=== PATIENT | male | born 1950 | race Caucasian/White ===

== ENCOUNTER → 2018-06-15 | Outpatient (CLI) | payer MEDICARE ==
--- NOTE | 2018-06-15 14:13 | MR ---
EXAMINATION TYPE: MR brain wo/w con DATE OF EXAM: 06/15/2018 12:09 PM COMPARISON: NONE HISTORY: Neurofibromatosis, type 1 CONTRAST: Patient received 8.5 mL intravenous Gadavist gadolinium contrast. Multiplanar and multispin-echo imaging of the brain was performed . Pre and post contrast enhanced i mages are obtained. The ventricles, basal cisterns and sulci overlying the cerebral convexities are moderately enlarged. There is evidence of mild periventricular white matter ischemic demyelination. Remote deep white matter insults are also noted. No acute edema is seen on diffusion weighted imaging. There is no evidence for midline shift or mass effect. Acute intracranial hemorrhage or extra-axial collection is not evident. No enhancing intracranial lesions are seen. 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 Moderate opacification right mastoid air cells. Left-sided mastoid air cells are minimally opacified. Mucocele left maxillary sinus. Chronic pansinusitis. IMPRESSION: 1. No enhancing intracranial lesions. Several scalp neurofibromas identified. 2. Age-related atrophic and chronic small vessel ischemic change. No acute intracranial process at this time.
== END | disposition home or self-care (01) ==
LOC: RADMRIMAIN 10:57
PROVIDERS: ATTEND Psychiatry & Neurology Neurology
DX: Q85.01 Neurofibromatosis, type 1 (principal); G31.1 Senile degeneration of brain, not elsewhere classified; I67.82 Cerebral ischemia
CPT/HCPCS: 70553; A9585

== ENCOUNTER 2020-05-13 08:26 | Inpatient (IN) | payer MEDICARE ==
[2020-05-13] MEDS ORDERED: SODIUM CHLORIDE 0.9% 1,000 ML IV STA (08:45)
[2020-05-13 09:22] LABS: Basophils # (A) 0.1 k/uL (0-0.2); Basophils % (A) 0 %; Eosinophils # (A) 0.1 k/uL (0-0.7); Eosinophils % (A) 0 %; HCT 34.1 % (39.0-53.0); HGB 11.5 gm/dL (13.0-17.5); Lymphocytes # (A) 1.8 k/uL (1.0-4.8); Lymphocytes % (A) 15 %; MCH 30.8 pg (25.0-35.0); MCHC 33.6 g/dL (31.0-37.0); MCV 91.7 fL (80.0-100.0); Mean Platelet Volume 7.2; Monocytes # (A) 0.6 k/uL (0-1.0); Monocytes % (A) 5 %; Neutrophils # (A) 9.4 k/uL (1.3-7.7); Neutrophils % (A) 78 %; Platelet Count 276 k/uL (150-450); RBC 3.72 m/uL (4.30-5.90); RDW 13.5 % (11.5-15.5)
--- NOTE | 2020-05-13 09:26 | ED ---
GI Bleed HPI - General Chief complaint: GI Bleed Stated complaint: GI Bleed Time Seen by Provider: 05/13/20 08:50 Source: patient, RN notes reviewed Mode of arrival: ambulatory Limitations: no limitations - History of Present Illness Initial comments: This is a 69-year-old male who presents with complaints of 2 days of black tarry colored stool also some lightheadedness when he gets up from a sitting or supine position. No overt abdominal pain he had previous history of about 15 years ago (he states. No nausea no vomiting no intake of any known substances containing iron no Pepto-Bismol go black colored material. No other complaints or modifyin g factors - Related Data Home Medications Medication Instructions Recorded Confirmed Aspirin EC [Ecotrin Low Dose] 81 mg PO HS 05/13/20 05/13/20 Multivitamins, Thera [Multivitamin 1 tab PO DAILY 05/13/20 05/13/20 (formulary)] [place]-3 Fatty Acids/Fish Oil [Fish 1 cap PO DAILY@1200 05/13/20 05/13/20 Oil 1,000 mg Softgel] Pravastatin Sodium [Pravachol] 40 mg PO HS 05/13/20 05/13/20 Allergies Allergy/AdvReac Type Severity Reaction Status Date / Time No Known Allergies Allergy Verified 05/13/20 09:27 Review of Systems ROS Statement: Those systems with pertinent positive or pertinent negative responses have been documented in the HPI. ROS Other: All systems not noted in ROS Statement are negative. Past Medical History Past Medical History: Neurologic Disorder History of Any Multi-Drug Resistant Organisms: None Reported Past Surgical History: No Surgical Hx Reported Past Psychological History: No Psychological Hx Reported Smoking Status: Never smoker Past Alcohol Use History: None Reported Past Drug Use History: None Reported General Exam - General Exam Comments Initial Comments: This a well-developed well-nourished awake alert oriented times 3 male Limitations: no limitations General appearance: alert, in no apparent distress Head exam: Present: atraumatic, normocephalic, normal inspection Eye exam: Present: normal appearance, PERRL, EOMI. Absent: scleral icterus, conjunctival injection, periorbital swelling ENT exam: Present: normal exam, mucous membranes moist Neck exam: Present: normal inspection. Absent: tenderness, meningismus, lymphadenopathy Respiratory exam: Present: normal lung sounds bilaterally. Absent: respiratory distress, wheezes, rales, rhonchi, stridor Cardiovascular Exam: Present: normal rhythm, tachycardia, normal heart sounds. Absent: systolic murmur, diastolic murmur, rubs, gallop, clicks GI/Abdominal exam: Present: soft, normal bowel sounds. Absent: distended, tenderness, guarding, rebound, rigid Rectal exam: Present: heme (+) stool, black stool, other (No masses palpable) Extremities exam: Present: normal inspection, full ROM, normal capillary refill. Absent: tenderness, pedal edema, joint swelling, calf tenderness Back exam: Present: normal inspection Neurological exam: Present: alert, oriented X3, CN II-XII intact Psychiatric exam: Present: normal affect, normal mood Skin exam: Present: warm, dry, intact, normal color. Absent: rash Course Vital Signs 05/13/20 05/13/20 08:31 09:45 Temperature 97.8 F Pulse Rate 112 H 86 Respiratory 16 16 Rate Blood Pressure 130/89 136/79 O2 Sat by Pulse 99 99 Oximetry Medical Decision Making - Medical Decision Making I did discuss the findings with the patient as well as with Dr. Leonardo. Patient is demonstrated evidence of upper GI bleed patient will be admitted with GI consultation. - Lab Data Result diagrams: 05/13/20 09:06 05/13/20 09:06 Lab Results 05/13/20 05/13/20 05/13/20 Range/Units 09:04 09:06 09:06 WBC 12.0 H (3.8-10.6) k/uL RBC 3.72 L (4.30-5.90) m/uL Hgb 11.5 L (13.0-17.5) gm/dL Hct 34.1 L (39.0-53.0) % MCV 91.7 (80.0-100.0) fL MCH 30.8 (25.0-35.0) pg MCHC 33.6 (31.0-37.0) g/dL RDW 13.5 (11.5-15.5) % Plt Count 276 (150-450) k/uL Neutrophils % 78 % Lymphocytes % 15 % Monocytes % 5 % Eosinophils % 0 % Basophils % 0 % Neutrophils # 9.4 H (1.3-7.7) k/uL Lymphocytes # 1.8 (1.0-4.8) k/uL Monocytes # 0.6 (0-1.0) k/uL Eosinophils # 0.1 (0-0.7) k/uL Basophils # 0.1 (0-0.2) k/uL PT (9.0-12.0) sec INR (<1.2) APTT (22.0-30.0) sec Sodium (137-145) mmol/L Potassium (3.5-5.1) mmol/L Chloride (98-107) mmol/L Carbon Dioxide (22-30) mmol/L Anion Gap mmol/L BUN (9-20) mg/dL Creatinine (0.66-1.25) mg/dL Est GFR (CKD-EPI)AfAm (>60 ml/min/1.73 sqM) Est GFR (CKD-EPI)NonAf (>60 ml/min/1.73 sqM) Glucose (74-99) mg/dL Calcium (8.4-10.2) mg/dL Magnesium (1.6-2.3) mg/dL Total Bilirubin (0.2-1.3) mg/dL AST (17-59) U/L ALT (4-49) U/L Alkaline Phosphatase (38-126) U/L Creatine Kinase (55-170) U/L Troponin I (0.000-0.034) ng/mL Total Protein (6.3-8.2) g/dL Albumin (3.5-5.0) g/dL Stool Occult Blood Positive (Negative) Blood Type Blood Type Confirm O Positive Blood Type Recheck Bld Type Recheck Status Antibody Screen Spec Expiration Date 05/13/20 05/13/20 05/13/20 Range/Units 09:06 09:06 09:06 WBC (3.8-10.6) k/uL RBC (4.30-5.90) m/uL Hgb (13.0-17.5) gm/dL Hct (39.0-53.0) % MCV (80.0-100.0) fL MCH (25.0-35.0) pg MCHC (31.0-37.0) g/dL RDW (11.5-15.5) % Plt Count (150-450) k/uL Neutrophils % % Lymphocytes % % Monocytes % % Eosinophils % % Basophils % % Neutrophils # (1.3-7.7) k/uL Lymphocytes # (1.0-4.8) k/uL Monocytes # (0-1.0) k/uL Eosinophils # (0-0.7) k/uL Basophils # (0-0.2) k/uL PT 9.8 (9.0-12.0) sec INR 0.9 (<1.2) APTT 22.1 (22.0-30.0) sec Sodium 138 (137-145) mmol/L Potassium 4.7 (3.5-5.1) mmol/L Chloride 106 (98-107) mmol/L Carbon Dioxide 23 (22-30) mmol/L Anion Gap 9 mmol/L BUN 46 H (9-20) mg/dL Creatinine 0.71 (0.66-1.25) mg/dL Est GFR (CKD-EPI)AfAm >90 (>60 ml/min/1.73 sqM) Est GFR (CKD-EPI)NonAf >90 (>60 ml/min/1.73 sqM) Glucose 134 H (74-99) mg/dL Calcium 9.5 (8.4-10.2) mg/dL Magnesium 1.9 (1.6-2.3) mg/dL Total Bilirubin 0.5 (0.2-1.3) mg/dL AST 20 (17-59) U/L ALT 14 (4-49) U/L Alkaline Phosphatase 77 (38-126) U/L Creatine Kinase 28 L (55-170) U/L Troponin I <0.012 (0.000-0.034) ng/mL Total Protein 6.5 (6.3-8.2) g/dL Albumin 3.9 (3.5-5.0) g/dL Stool Occult Blood (Negative) Blood Type Blood Type Confirm Blood Type Recheck Bld Type Recheck Status Antibody Screen Spec Expiration Date 05/13/20 Range/Units 09:06 WBC (3.8-10.6) k/uL RBC (4.30-5.90) m/uL Hgb (13.0-17.5) gm/dL Hct (39.0-53.0) % MCV (80.0-100.0) fL MCH (25.0-35.0) pg MCHC (31.0-37.0) g/dL RDW (11.5-15.5) % Plt Count (150-450) k/uL Neutrophils % % Lymphocytes % % Monocytes % % Eosinophils % % Basophils % % Neutrophils # (1.3-7.7) k/uL Lymphocytes # (1.0-4.8) k/uL Monocytes # (0-1.0) k/uL Eosinophils # (0-0.7) k/uL Basophils # (0-0.2) k/uL PT (9.0-12.0) sec INR (<1.2) APTT (22.0-30.0) sec Sodium (137-145) mmol/L Potassium (3.5-5.1) mmol/L Chloride (98-107) mmol/L Carbon Dioxide (22-30) mmol/L Anion Gap mmol/L BUN (9-20) mg/dL Creatinine (0.66-1.25) mg/dL Est GFR (CKD-EPI)AfAm (>60 ml/min/1.73 sqM) Est GFR (CKD-EPI)NonAf (>60 ml/min/1.73 sqM) Glucose (74-99) mg/dL Calcium (8.4-10.2) mg/dL Magnesium (1.6-2.3) mg/dL Total Bilirubin (0.2-1.3) mg/dL AST (17-59) U/L ALT (4-49) U/L Alkaline Phosphatase (38-126) U/L Creatine Kinase (55-170) U/L Troponin I (0.000-0.034) ng/mL Total Protein (6.3-8.2) g/dL Albumin (3.5-5.0) g/dL Stool Occult Blood (Negative) Blood Type O Positive Blood Type Confirm Blood Type Recheck No Previous Record Bld Type Recheck Status CABO Indicated Antibody Screen NEGATIVE Spec Expiration Date 05/16/2020 - 230 - Radiology Data Radiology results: report reviewed (Imaging reviewed no acute findings), image reviewed Disposition Clinical Impression: Melena, Upper GI bleeding, Anemia Disposition: ADMITTED IP TO THIS [facility] Condition: Fair Referrals: Donavan Oneil MD [Primary Care Provider] - 1-2 days
[2020-05-13 09:33] LABS: ALT 14 U/L (4-49); AST 20 U/L (17-59); African American GFR (CKD) >90 (>60 ml/min/1.73 sqM); Albumin 3.9 g/dL (3.5-5.0); Alkaline Phosphatase 77 U/L (38-126); Anion Gap 9 mmol/L; Blood Urea Nitrogen 46 mg/dL (9-20); Calcium 9.5 mg/dL (8.4-10.2); Carbon Dioxide 23 mmol/L (22-30); Chloride 106 mmol/L (98-107); Creatine Kinase 28 U/L (55-170); Glucose 134 mg/dL (74-99); Magnesium 1.9 mg/dL (1.6-2.3); Non-African American GFR(CKD) >90 (>60 ml/min/1.73 sqM); Potassium 4.7 mmol/L (3.5-5.1); Sodium 138 mmol/L (137-145); Total Bilirubin 0.5 mg/dL (0.2-1.3); Total Protein 6.5 g/dL (6.3-8.2)
[2020-05-13 09:37] LABS: INR 0.9 (<1.2); Partial Thromboplastin Time 22.1 sec (22.0-30.0); Prothrombin Time 9.8 sec (9.0-12.0)
--- NOTE | 2020-05-13 09:38 | XR ---
EXAMINATION TYPE: XR abdomen 2V DATE OF EXAM: 05/13/2020 9:34 AM CLINICAL HISTORY: GI bleed. Dark blood in stool. Dizziness. TECHNIQUE: Supine and upright images of the abdomen and pelvis were obtained COMPARISON: None. FINDINGS: Nonspecific. There is no visceromegaly, pneumoperitoneum, or abnormal calcification appreci ated. The lung bases are clear. Degenerative changes of the spine and hips. IMPRESSION: Nonspecific bowel gas pattern. No pneumoperitoneum.
[2020-05-13] MEDS ORDERED: ONDANSETRON 4 MG/2 ML VIAL IVP PRN (10:59)
[2020-05-13] MEDS ORDERED: NALOXONE 0.4 MG/ML 1 ML VIAL IV PRN (10:59)
[2020-05-13] MEDS: SODIUM CHLORIDE 0.9% 1,000 ML IV SCH ×2 (11:08→19:34)
[2020-05-13] MEDS ORDERED: INFLUENZA VACCINE (6 MOS+) 60 MCG/0.5 ML SYRINGE IM ONE (12:09)
[2020-05-13] MEDS ORDERED: PNEUMOCOCCAL VACC-PNEUMOVAX 23 25 MCG/0.5 ML VIAL IM ONE (12:09)
[2020-05-13] MEDS ORDERED: ACETAMINOPHEN TAB 325 MG TAB PO PRN (12:33)
--- NOTE | 2020-05-13 14:07 | P.HPIM ---
History of Present Illness H&P Date: 05/13/20 69-year-old male with PMH of neurofibromatosis presents to the ED for melena. Patient reports black tarry stools over the past 2 days. This morning, he expressed lightheadedness as he stood up which prompted him to come to the ED. He denies any abdominal pain. He denies any nausea or vomiting. Patient reports similar incidents 12 years ago but is unsure of the diagnosis. He denies any hematochezia. He denies any NSAID use. He denies any alcohol use. No smoking. States colonoscopy was last year normal. He denies any headache, lower extremity edema, fever or chills, cough, chest pain, shortness of breath, palpitations, changes in urination or bowel habits. He reports a decreased ap petite but drinks plenty of water. He denies any numbness/weakness/tingling of the extremities. In the ED, his vital signs were stable except for pulse of 112. CBC showed WBC count of 12 and hemoglobin of 11.5. CMP showed BUN of 46, glucose of 134. Stool for occult blood is positive. Patient is admitted for lower GI bleed with GI on consult. Review of Systems Pertinent positives and negatives as discussed in HPI, a complete review of systems was performed and all other systems are negative. Past Medical History Past Medical History: Hyperlipidemia, Neurologic Disorder, Skin Disorder Additional Past Medical History / Comment(s): Neurofibromytosis, lower GI bleed with anemia d/t medication allergy per pt. History of Any Multi-Drug Resistant Organisms: None Reported Past Surgical History: No Surgical Hx Reported Additional Past Surgical History / Comment(s): Tumor removed from posterior neck-benign, catahoula spot removed from abdomin for study, colonoscopies-normal with last one in 2019. Past Anesthesia/Blood Transfusion Reactions: No Reported Reaction Past Psychological History: No Psychological Hx Reported Additional Psychological History / Comment(s): Pt resides alone. He is independent. Smoking Status: Never smoker Past Alcohol Use History: None Reported Past Drug Use History: None Reported - Past Family History Father Family Medical History: Cancer Additional Family Medical History / Comment(s): Father of cancer, pt cannot recall type. Mother Family Medical History: Cancer Additional Family Medical History / Comment(s): Mother is from breast/lung cancer Sister(s) Family Medical History: Cancer Additional Family Medical History / Comment(s): Sister is from breast/lung cancer. Medications and Allergies Home Medications Medication Instructions Recorded Confirmed Type Aspirin EC [Ecotrin Low Dose] 81 mg PO HS 05/13/20 05/13/20 History Multivitamins, Thera [Multivitamin 1 tab PO DAILY 05/13/20 05/13/20 History (formulary)] [place]-3 Fatty Acids/Fish Oil [Fish 1 cap PO DAILY@1200 05/13/20 05/13/20 History Oil 1,000 mg Softgel] Pravastatin Sodium [Pravachol] 40 mg PO HS 05/13/20 05/13/20 History Allergies Allergy/AdvReac Type Severity Reaction Status Date / Time No Known Allergies Allergy Verified 05/13/20 09:27 Physical Exam Vitals: Vital Signs Temp Pulse Pulse Resp BP BP Pulse Ox 05/13/20 12:31 97.9 F 92 16 121/73 98 05/13/20 09:45 86 16 136/79 99 05/13/20 08:31 97.8 F 112 H 16 130/89 99 Intake and Output 05/12/20 05/13/20 05/13/20 22:59 06:59 14:59 Other: Weight 80.739 kg General: [non toxic], [no distress], [appears at stated age] Derm: [warm], [dry], neurofibromas scattered throughout Head: [atraumatic], [normocephalic], [symmetric] Eyes: [EOMI], [no lid lag], [anicteric sclera] Mouth: [no lip lesion], [mucus membranes moist] Cardiovascular: [S1S2 reg], [tachycardic], [positive DP pulse bilateral], Lungs: [CTA bilateral], [no rhonchi, no rales] , [no accessory muscle use] Abdominal: [soft], [ nontender to palpation], [no guarding], [no appreciable organomegaly] Ext: [no gross muscle atrophy], [no edema], [no contractures] Neuro: [ CN II-XI grossly intact], [no focal neuro deficits] Psych: [Alert], [oriented], [appropriate affect] Results CBC & Chem 7: 05/13/20 09:06 10/07/20 09:06 Labs: Abnormal Lab Results - Last 24 Hours (Table) 05/13/20 05/13/20 Range/Units 09:06 09:06 WBC 12.0 H (3.8-10.6) k/uL RBC 3.72 L (4.30-5.90) m/uL Hgb 11.5 L (13.0-17.5) gm/dL Hct 34.1 L (39.0-53.0) % Neutrophils # 9.4 H (1.3-7.7) k/uL BUN 46 H (9-20) mg/dL Glucose 134 H (74-99) mg/dL Creatine Kinase 28 L (55-170) U/L Thrombosis Risk Factor Assmnt - Choose All That Apply Any of the Below Risk Factors Present?: Yes Each Factor Represents 1 point: Obesity (BMI >25) Other Risk Factors: Yes Each Risk Factor Represents 2 Points: Age 61-74 years Other congenital or acquired thrombophilia - If yes, enter type in comment: No Thrombosis Risk Factor Assessment Total Risk Factor Score: 3 Thrombosis Risk Factor Assessment Level: Moderate Risk Assessment and Plan Assessment: Lower GI bleed Lightheadedness Leukocytosis Elevated BUN Dyslipidemia Hemoglobin 11.5. Stool for occult blood positive. Plans: Nothing by mouth. GI consulted. Continue Protonix IV. Trend hemoglobin. Transfuse if hemoglobin less than 7. Telemetry monitoring. Hold aspirin. Likely related to the above. Plans: Continue normal saline at 75 mL per hour. Obtain orthostatics if not improved tomorrow. Likely reactive. No signs of infection. Plans: Continue to monitor. Repeat CBC. BUN 46. Likely due to GI bleed. Plans: IV hydration as above. Repeat BMP tomorrow morning. Plans: Continue pravastatin. DVT prophylaxis: [SCD boots] Discussed with: [Patient] Anticipated discharge: [2-3 days ] Anticipated discharge place: [Home] A total of [45] minutes was spent on the care of this complex patient more than 50% of the time was spent in counseling and care coordination. Patient names his nephew Nikolay decision maker. He can't make decisions for himself. Patient would like to be full code.
[2020-05-13 15:30] LABS: Basophils # (A) 0.1 k/uL (0-0.2); Basophils % (A) 0 %; Eosinophils # (A) 0.1 k/uL (0-0.7); Eosinophils % (A) 0 %; HCT 30.5 % (39.0-53.0); HGB 10.1 gm/dL (13.0-17.5); Lymphocytes # (A) 2.7 k/uL (1.0-4.8); Lymphocytes % (A) 21 %; MCH 29.9 pg (25.0-35.0); MCHC 33.3 g/dL (31.0-37.0); Mean Platelet Volume 7.4; Monocytes # (A) 0.8 k/uL (0-1.0); Monocytes % (A) 6 %; Neutrophils # (A) 9.4 k/uL (1.3-7.7); Neutrophils % (A) 71 %; Platelet Count 252 k/uL (150-450); RBC 3.39 m/uL (4.30-5.90); RDW 13.6 % (11.5-15.5); WBC 13.2 k/uL (3.8-10.6)
[2020-05-13] MEDS: PANTOPRAZOLE 40 MG/10 ML VIAL IV SCH (20:27)
[2020-05-13] MEDS ORDERED: PRAVASTATIN SODIUM 40 MG TAB PO SCH (21:00)
[2020-05-14 04:45] VITALS: RESP 16; TEMP 97.9
[2020-05-14 06:10] LABS: HCT 28.5 % (39.0-53.0); HGB 9.3 gm/dL (13.0-17.5); MCH 29.7 pg (25.0-35.0); MCHC 32.7 g/dL (31.0-37.0); MCV 90.7 fL (80.0-100.0); Mean Platelet Volume 7.2; Platelet Count 227 k/uL (150-450); RBC 3.14 m/uL (4.30-5.90); RDW 13.7 % (11.5-15.5); WBC 10.5 k/uL (3.8-10.6)
[2020-05-14] MEDS: PANTOPRAZOLE 40 MG/10 ML VIAL IV SCH (07:43)
--- NOTE | 2020-05-14 09:15 | P.CONS ---
History of Present Illness - Reason for Consult Consult date: 05/13/20 Melena Requesting physician: Anant Chan - Chief Complaint Melena - History of Present Illness 69-year-old male with a medical history significant for neurofibromatosis who presented to the hospital due to complaints of dark colored bowel movements. The patient reports 2 days of black bowel movements. He reports some associated lightheadedness. No gross blood per rectum. He does report a syncopal episode approximately 15 years ago while in [place] was unclear about the details regarding what intervention was performed. No history of acid reflux or peptic ulcer disease. The patient does take a baby aspirin daily. He denies any history of significant alcohol abuse. Last colonoscopy was 1 year ago as per patient report which the patient reports was normal. He did have testing on presentation which was positive for occult blood. Laboratory evaluation significant for WBC 12, hemoglobin 11.5, platelet count 376,000, total bilirubin 0.5, alkaline phosphatase 77, AST 20 and ALT 14. Nonspecific bowel gas pattern on abdominal x-ray. Review of Systems REVIEW OF SYSTEMS: CONSTITUTIONAL: Denies any fevers, chills, weight change or fatigue. CARDIOVASCULAR: Denies any chest pain, palpitations high or low blood pressures RESPIRATORY: Denies any shortness of breath, hemoptysis or cough. GENITOURINARY: No dysuria or hematuria. MUSCULOSKELETAL: No weakness reported. SKIN: Denies any new rashes or lesions, jaundice or pallor, history of neurofibromatosis. PSYCHIATRIC: Denies any depression or anxiety. NEUROLOGY: Denies headache, denies any new focal deficits. EARS/NOSE/THROAT: No recent hearing change, congestion, nasal discharge or sore throat. EYES: No pain in eyes, discharge or change in vision. GASTROINTESTINAL: As per HPI. Past Medical History Past Medical History: Hyperlipidemia, Neurologic Disorder, Skin Disorder Additional Past Medical History / Comment(s): Neurofibromytosis, lower GI bleed with anemia d/t medication allergy per pt. History of Any Multi-Drug Resistant Organisms: None Reported Past Surgical History: No Surgical Hx Reported Additional Past Surgical History / Comment(s): Tumor removed from posterior neck -benign, catahoula spot removed from abdomin for study, colonoscopies-normal with last one in 2019. Past Anesthesia/Blood Transfusion Reactions: No Reported Reaction Past Psychological History: No Psychological Hx Reported Additional Psychological History / Comment(s): Pt resides alone. He is independent. Smoking Status: Never smoker Past Alcohol Use History: None Reported Past Drug Use History: None Reported - Past Family History Father Family Medical History: Cancer Additional Family Medical History / Comment(s): Father of cancer, pt cannot recall type. Mother Family Medical History: Cancer Additional Family Medical History / Comment(s): Mother is from breast/lung cancer Sister(s) Family Medical History: Cancer Additional Family Medical History / Comment(s): Sister is from breast/lung cancer. Medications and Allergies Home Medications Medication Instructions Recorded Confirmed Type Aspirin EC [Ecotrin Low Dose] 81 mg PO HS 05/13/20 05/13/20 History Multivitamins, Thera [Multivitamin 1 tab PO DAILY 05/13/20 05/13/20 History (formulary)] [place]-3 Fatty Acids/Fish Oil [Fish 1 cap PO DAILY@1200 05/13/20 05/13/20 History Oil 1,000 mg Softgel] Pravastatin Sodium [Pravachol] 40 mg PO HS 05/13/20 05/13/20 History Allergies Allergy/AdvReac Type Severity Reaction Status Date / Time No Known Allergies Allergy Verified 05/13/20 09:27 Physical Exam Vitals: Vital Signs Temp Pulse Pulse Resp BP BP Pulse Ox 05/13/20 12:31 97.9 F 92 16 121/73 98 05/13/20 09:45 86 16 136/79 99 05/13/20 08:31 97.8 F 112 H 16 130/89 99 Intake and Output 05/12/20 05/13/20 05/13/20 22:59 06:59 14:59 Intake Total 130 Balance 130 Intake: Intake, IV Titration 130 Amount Sodium Chloride 0.9% 1, 130 000 ml @ 130 mls/hr IV . Q7H42M [facility] Rx#:[id number] Other: Weight 80.739 kg On physical examination, patient appears comfortable in no apparent distress. HEAD: Normocephalic, atraumatic. EYES: No scleral icterus. No conjunctival injection. MOUTH: No lesions, tongue midline. NECK: Trachea midline, no gross abnormalities. CHEST: Clear to auscultation with no wheezing or rhonchi appreciated. HEART: Regular rate and rhythm. ABDOMEN: Soft, nontender to palpation. Bowel sounds are positive. No organomegaly. No guarding or rigidity. EXTREMITIES: No pedal edema. SKIN: No rashes, no jaundice, multiple lesions noted consistent with a history of neurofibromatosis NEUROLOGIC: Alert and oriented x3. No focal deficits. Results CBC & Chem 7: 05/14/20 05:38 05/13/20 09:06 Labs: Abnormal Lab Results - Last 24 Hours (Table) 05/13/20 05/13/20 Range/Units 09:06 09:06 WBC 12.0 H (3.8-10.6) k/uL RBC 3.72 L (4.30-5.90) m/uL Hgb 11.5 L (13.0-17.5) gm/dL Hct 34.1 L (39.0-53.0) % Neutrophils # 9.4 H (1.3-7.7) k/uL BUN 46 H (9-20) mg/dL Glucose 134 H (74-99) mg/dL Creatine Kinase 28 L (55-170) U/L Abdominal x-ray: report reviewed (Nonspecific bowel gas pattern on abdominal x- ray) Assessment and Plan (1) Melena Narrative/Plan: 69-year-old male presenting to the hospital due to complaints of left tarry bowel movements for 2 days. Denies any history of peptic ulcer disease or acid reflux. Denies any NSAID use but is on daily baby aspirin therapy. No s ignificant alcohol history. Mildly depressed hemoglobin of 11.5 on presentation with a positive testing of stool for occult blood. Last colonoscopy approximately 1 year ago and normal per report from the patient. Unclear etiology with differential including peptic ulcer disease, esophagitis or ga stritis, AVM or other etiology. Current Visit: Yes Status: Acute Code(s): K92.1 - MELENA SNOMED Code(s): 4271288 (2) Anemia associated with acute blood loss Current Visit: Yes Status: Acute Code(s): D62 - ACUTE POSTHEMORRHAGIC ANEMIA SNOMED Code(s): 023422595 Plan: Supportive care Clear liquid diet Nothing by mouth after midnight Continue to monitor hemoglobin and hematocrit and transfuse as needed Avoid NSAID therapy Hold any anticoagulation therapy at this time Plan for EGD tomorrow for further evaluation Protonix 40 mg twice daily Thank you for allowing us to participate in the care of the patient we will continue to follow
[2020-05-14] MEDS ORDERED: PROPOFOL 10 MG/ML 20 ML VIAL IV ONE (09:20)
[2020-05-14] MEDS ORDERED: LIDOCAINE 1% INJ 10MG/ML (20 ML MDV) ONE (09:20)
[2020-05-14] MEDS ORDERED: IV FLUID CONTINUATION 1,000 ML IV ONE (09:22)
[2020-05-14 09:43] LABS: African American GFR (CKD) 117.2 (60.0-200.0); Anion Gap 5.1 mmol/L (4.00-12.00); Calcium 8.6 mg/dL (8.7-10.3); Carbon Dioxide 25.9 mmol/L (21.6-31.8); Non-African American GFR(CKD) 101.2 (60.0-200.0); Potassium 4.2 mmol/L (3.5-5.5)
--- NOTE | 2020-05-14 09:47 | P.PCN ---
Date of Procedure: 05/14/20 Description of Procedure: BRIEF HISTORY: 69-year-old male with a medical history significant for neurofibromatosis who presented to the hospital due to complaints of dark colored bowel movements. The patient reports 2 days of black bowel movements. He reports some associated lightheadedness. No gross blood per rectum. He does report a syncopal episode approximately 15 years ago while in [place] was unclear about the details regarding what intervention was performed. No history of acid reflux or peptic ulcer disease. The patient does take a baby aspirin daily. He denies any history of significant alcohol abuse. Last colonoscopy was 1 year ago as per patient report which the patient reports was normal. He did have testing on presentation which was positive for occult blood. Laboratory evaluation significant for WBC 12, hemoglobin 11.5, platelet count 376,000, total bilirubin 0.5, alkaline phosphatase 77, AST 20 and ALT 14. Nonspecific bowel gas pattern on abdominal x-ray. PROCEDURE PERFORMED: Esophagogastroduodenoscopy with biopsy. PREOPERATIVE DIAGNOSIS: Melena, stool positive for occult blood. ESTIMATED BLOOD LOSS: Minimal. IV sedation per anesthesia. PROCEDURE: After informed consent was obtained, the patient was brought into the endoscopy unit. IV sedation was administered by Anesthesia under continuous monitoring. Initially the Olympus GIF-190 video endoscope was inserted into the mouth. Esophagus intubated without any difficulty. It was gradually advanced into the stomach and duodenum and carefully examined. The bulb and the second part of the duodenum appeared normal, with biopsies taken. The scope at this time was withdrawn to the stomach, adequately insufflated with air, and upon careful examination, mucosa of the antrum, body, cardia and the fundus appeared normal, except for some mild scattered erythema in the antrum and body suggestive of mild gastritis with biopsies taken. The scope was then withdrawn into the esophagus. The GE junction was located at 39 cm from the incisors. The esophagus appeared normal. There were no erosions or ulcerations seen and the patient tolerated the procedure well. IMPRESSION: 1. Mild gastritis. 2. Biopsies of the duodenum and antrum and body. RECOMMENDATIONS: The findings of this examination were discussed with the patient. Okay to resume diet. Okay to resume medications. Continue current medical management. Continue to monitor hemoglobin and hematocrit and transfuse as needed. Okay for discharge when medically stable with no further signs or symptoms, with the patient currently reporting no further dark bowel movements since admission.
[2020-05-14 10:24] VITALS: BP 106/67; PULSE 81
[2020-05-14 12:19] LABS: HCT 27.8 % (39.0-53.0); HGB 9.3 gm/dL (13.0-17.5); MCH 31.5 pg (25.0-35.0); MCHC 33.5 g/dL (31.0-37.0); MCV 94.1 fL (80.0-100.0); Mean Platelet Volume 7.3; Platelet Count 226 k/uL (150-450); RBC 2.95 m/uL (4.30-5.90); RDW 13.6 % (11.5-15.5); WBC 8.1 k/uL (3.8-10.6)
--- NOTE | 2020-05-14 17:07 | P.DS ---
Providers Date of admission: 05/13/20 11:02 Expected date of discharge: 05/14/20 Attending physician: Anant Chan MD Consults: 05/13/20 11:00 Consult Physician Routine Consulting Provider: Yaneli Mccarthy Consult Reason/Comments: GI bleed, anemia Do you want consulting provider notified?: Yes Primary care physician: [facility] Course: 69-year-old male with PMH of neurofibromatosis presents to the ED for melena. Patient reports black tarry stools over the past 2 days. This morning, he expressed lightheadedness as he stood up which prompted him to come to the ED. He denies any abdominal pain. He denies any nausea or vomiting. Patient reports similar incidents 12 years ago but is unsure of the diagnosis. He denies any hematochezia. He denies any NSAID use. He denies any alcohol use. No smoking. States colonoscopy was last year normal. He denies any headache, lower extremity edema, fever or chills, cough, chest pain, shortness of breath, palpitations, changes in urination or bowel habits. He reports a decreased appetite but drinks plenty of water. He denies any numbness/weakness/tingling of the extremities. In the ED, his vital signs were stable except for pulse of 112. CBC showed WBC count of 12 and hemoglobin of 11.5. CMP showed BUN of 46, glucose of 134. Stool for occult blood is positive. Patient is admitted for lower GI bleed with GI on consult. His hemoglobin dropped from 11.5-10.1 and 9.3. This is thought to be related partially to dilution since he was on IVF. GI was consulted and patient underwent EGD which showed mild gastritis. Patient was seen and examined. No acute events overnight. Patient reports no bowel movements today. Lightheadedness resolved. He denies any chest pain, shortness breath or palpitations. No nausea or vomiting. No fever or chills. General: [non toxic], [no distress], [appears at stated age] Derm: [warm], [dry], neurofibromas scattered throughout Head: [atraumatic], [normocephalic], [symmetric] Eyes: [EOMI], [no lid lag], [anicteric sclera] Mouth: [no lip lesion], [mucus membranes moist] Cardiovascular: [S1S2 reg], [tachycardic], [positive DP pulse bilateral], Lungs: [CTA bilateral], [no rhonchi, no rales] , [no accessory muscle use] Abdominal: [soft], [ nontender to palpation], [no guarding], [no appreciable organomegaly] Ext: [no gross muscle atrophy], [no edema], [no contractures] Neuro: [no focal neuro deficits] Psych: [Alert], [oriented], [appropriate affect] Lower GI bleed Dyslipidemia Hemoglobin 11.5, 10.1, 9.3 x 2. Stool for occult blood positive. Plans: EGD shows mild gastritis. Hg stable today. Continue Protonix. Follow GI in the outpatient setting. Plans: Continue pravastatin. DVT prophylaxis: [SCD boots] Discussed with: [Patient] Anticipated discharge: [2-3 days ] Anticipated discharge place: [Home] A total of [45] minutes was spent on the care of this complex patient more than 50% of the time was spent in counseling and care coordination. Patient names his nephew Nikolay decision maker. He can't make decisions for himself. Patient would like to be full code. [Hemoglobin stable. EGD unrevealing for GI bleed. Plans on DC home today. Advised to return if further episodes of melena or hematochezia. Patient verbalized understanding of the plan. This complex discharge took about 35 minutes to complete.] Pertinent Studies: KUB Procedures: Endoscopy Patient Condition at Discharge: Stable Plan - Discharge Summary Discharge Rx Participant: No New Discharge Prescriptions: New Ferrous Sulfate [Iron (65 MG Elemental)] 325 mg PO DAILY #30 tab Pantoprazole Sodium [Protonix] 40 mg PO AC-BRKFST #90 tablet. Continue Aspirin EC [Ecotrin Low Dose] 81 mg PO HS Pravastatin Sodium [Pravachol] 40 mg PO HS Multivitamins, Thera [Multivitamin (formulary)] 1 tab PO DAILY [place]-3 Fatty Acids/Fish Oil [Fish Oil 1,000 mg Softgel] 1 cap PO DAILY@1200 Discharge Medication List Aspirin EC [Ecotrin Low Dose] 81 mg PO HS 05/13/20 [History] Multivitamins, Thera [Multivitamin (formulary)] 1 tab PO DAILY 05/13/20 [History] [place]-3 Fatty Acids/Fish Oil [Fish Oil 1,000 mg Softgel] 1 cap PO DAILY@1200 05/13/20 [History] Pravastatin Sodium [Pravachol] 40 mg PO HS 05/13/20 [History] Ferrous Sulfate [Iron (65 MG Elemental)] 325 mg PO DAILY #30 tab 05/14/20 [Rx] Pantoprazole Sodium [Protonix] 40 mg PO AC-FIDEKFST #90 tablet. 05/14/20 [Rx] Follow up Appointment(s)/Referral(s): Donavan Oneil MD [Primary Care Provider] - 1-2 days Oziel Haro MD [STAFF PHYSICIAN] - 06/04/20 2:30 pm Ambulatory/Diagnostic Orders: Complete Blood Count w/diff [LAB.AMB] Time Frame: 3 Days, Location: None Selecte d Patient Instructions/Handouts: Gastrointestinal Bleeding (DC), Anemia (DC), Melena (ED) Discharge Disposition: HOME SELF-CARE
== END 2020-05-14 13:39 | disposition home or self-care (01) | DRG 378 ==
LOC: EC 08:26 → 6NMEDSUR 11:02
PROVIDERS: ADMIT Family Medicine; ATTEND Family Medicine
PROC: 3E02340 Introduction of Influenza Vaccine into Muscle, Percutaneous Approach (ICD-10-PCS; 2020-05-13)
PROC: 3E0234Z Introduction of Serum, Toxoid and Vaccine into Muscle, Percutaneous Approach (ICD-10-PCS; 2020-05-13)
PROC: 0DB98ZX Excision of Duodenum, Via Natural or Artificial Opening Endoscopic, Diagnostic (ICD-10-PCS; principal; 2020-05-14 07:30)
PROC: 0DB78ZX Excision of Stomach, Pylorus, Via Natural or Artificial Opening Endoscopic, Diagnostic (ICD-10-PCS; principal; 2020-05-14 07:30)
DX: K29.71 Gastritis, unspecified, with bleeding (principal); D62 Acute posthemorrhagic anemia; Q85.00 Neurofibromatosis, unspecified; D72.829 Elevated white blood cell count, unspecified; E78.5 Hyperlipidemia, unspecified; R94.4 Abnormal results of kidney function studies; Z23 Encounter for immunization; Z79.82 Long term (current) use of aspirin; Z79.899 Other long term (current) drug therapy; Z87.2 Personal history of diseases of the skin and subcutaneous tissue; Z98.890 Other specified postprocedural states; Z80.1 Family history of malignant neoplasm of trachea, bronchus and lung; Z80.3 Family history of malignant neoplasm of breast
CPT/HCPCS: 36415; 43239; 74019; 80048; 80053; 82272; 82550; 83735; 84484; 85025; 85027; 85610; 85730; 86850; 86900; 86901; 88305; 88342; 99285

== ENCOUNTER → 2022-03-04 | Outpatient (CLI) | payer MEDICARE | END | disposition home or self-care (01) | LOC: LABPAT 09:47 | PROVIDERS: ATTEND Orthopaedic Surgery | DX: Z01.812 Encounter for preprocedural laboratory examination (principal); M16.12 Unilateral primary osteoarthritis, left hip | CPT/HCPCS: 87070 ==

== ENCOUNTER 2022-03-14 08:21 | Observation (INO) | payer MEDICARE ==
--- NOTE | 2022-03-13 23:04 | HP ---
HISTORY AND PHYSICAL DATE OF SURGERY: 03/14/2022. HISTORY: Danilo Ngo is a 71-year-old patient seen with symptomatic left hip osteoarthritis. We discussed options for treatment. He elected to proceed with direct anterior left total hip arthroplasty. Consent was obtained. Medical clearance was later obtained. PAST MEDICAL HISTORY: Hyperlipidemia. PAST SURGICAL HISTORY: Noncontributory. DAILY MEDICATIONS: Pravastatin. ALLERGIES: None. SOCIAL HISTORY: Denies tobacco use. PHYSICAL EXAMINATION: Evaluation of the left hip; there is diffuse tenderness about the hip. Limited range of motion with severe pain. Positive impingement sign. Straight-leg raise is negative. Distal neurovascular exam is intact. Radiographs of the left hip reveal severe osteoarthritic changes. IMPRESSION: 1. Left hip osteoarthritis. 2. Hyperlipidemia. PLAN: Direct anterior left total hip arthroplasty. MMODL / IJN: [id number] /
[~2022-03-14 08:21] MED LIST: ACETAMINOPHEN TAB 500 MG TAB PO PRN; HYDROmorphone 0.5 MG/0.5 ML SYRINGE IVP PRN; LIDOCAINE 1% (10MG/ML) FOR IV START INTRADERMA PRN; MELOXICAM 7.5 MG TAB PO PRN; MIDAZOLAM 2 MG/2 ML VIAL IV PRN; TRANEXAMIC ACID IN NACL,ISO-OS 1,000 MG in SALINE 1 100ML.BAG IVPB PRN
[2022-03-14] MEDS: ONDANSETRON 4 MG/2 ML VIAL IVP ONE ×3 (09:00→09:32)
[2022-03-14] MEDS: DEXAMETHASONE SOD PHOSPHATE 4 MG/ML 1 ML VIAL IV ONE ×3 (09:00→09:32)
[2022-03-14] MEDS: LACTATED RINGERS 1,000 ML IV SCH ×5 (09:30→20:00)
[2022-03-14] MEDS ORDERED: fentaNYL (PF) 50 MCG/ML 2 ML AMP IVP ONE (09:32)
--- NOTE | 2022-03-14 09:57 | P.ANPRN ---
Procedure Note - Anesthesia - Nerve Block Performed Left Erector Spinae Single Time Out Performed: Yes Date of Procedure: 03/14/22 Procedure Start Time: 09:00 Procedure Stop Time: 09:12 Location of Patient: PreOp Indication: Acute Post-Operative Pain, Dx/Pain Location, Requested by Surgeon Specifically requested for management of pain by : Sher Sanchez Sedation Type: Sedate with meaningful contact maintained Preparation: Sterile Prep Position: Supine Catheter: None Needle Types: Geovani Needle Gauge: 20 Ultrasound used to visualize needle placement: Yes Ultrasound used to observe medication spread: Yes Injectate: 0.5% Ropivacaine (see comment for volume) Blood Aspirated: No Pain Paresthesia on Injection Noted: No Resistance on Injection: Normal Image Stored and Saved: Yes Events: Uneventful and Well Tolerated (Ropivacaine 0.5% 20 cc)
[2022-03-14] MEDS ORDERED: MIDAZOLAM 2 MG/2 ML VIAL ONE (10:11)
[2022-03-14] MEDS ORDERED: fentaNYL (PF) 50 MCG/ML 2 ML AMP ONE (10:11)
[2022-03-14] MEDS ORDERED: PHENYLEPHRINE-0.9% NACL SYG 1,000 MCG/10 ML SYRINGE ONE (10:11)
[2022-03-14] MEDS ORDERED: TRANEXAMIC ACID IN NACL,ISO-OS 1,000 MG/100 ML BAG ONE (10:11)
[2022-03-14] MEDS ORDERED: ROPIVACAINE 5 MG/ML 30 ML VIAL ONE (10:11)
[2022-03-14] MEDS ORDERED: PROPOFOL 10 MG/ML 20 ML VIAL IV ONE (10:11)
[2022-03-14] MEDS ORDERED: FLUMAZENIL 0.1 MG/ML 5 ML VIAL IVP ONE (10:11)
[2022-03-14] MEDS ORDERED: LIDOCAINE 2% INJ 20 MG/ML (2 ML VIAL) ONE (10:11)
[2022-03-14] MEDS ORDERED: ceFAZolin 1,000 MG in SODIUM CHLORIDE 0.9% 1,000 ML IRRIGATION ONE (10:51)
[2022-03-14] MEDS ORDERED: LACTATED RINGERS 1,000 ML IV ONE (11:31)
--- NOTE | 2022-03-14 11:49 | FL ---
EXAMINATION TYPE: FL guidance operating room DATE OF EXAM: 03/14/2022 HISTORY: Fluoroscopy time 14 seconds of fluoroscopy provided. IMPRESSION: 1. Fluoroscopy time.
--- NOTE | 2022-03-14 11:49 | XR ---
EXAMINATION TYPE: XR Hip Limited LT DATE OF EXAM: 03/14/2022 COMPARISON: NONE HISTORY: Pain TECHNIQUE: One view submitted. FINDINGS: There is postsurgical change in near anatomic alignment. There is soft tissue edema and emphysema. IMPRESSION: 1. Postoperative change. Appears in near-anatomic alignment.
[2022-03-14] MEDS ORDERED: HYDROmorphone 0.5 MG/0.5 ML SYRINGE IVP PRN ×3 (11:58)
[2022-03-14] MEDS ORDERED: HYDROcodone/APAP 5-325MG 1 EACH TAB PO PRN (11:58)
[2022-03-14] MEDS ORDERED: NALOXONE 0.4 MG/ML 1 ML VIAL IV PRN (11:58)
[2022-03-14] MEDS ORDERED: ONDANSETRON 4 MG/2 ML VIAL IVP PRN (11:58)
--- NOTE | 2022-03-14 11:58 | P.OP ---
Date of Procedure: 03/14/22 Preoperative Diagnosis: Left hip osteoarthritis Postoperative Diagnosis: Left hip osteoarthritis Procedure(s) Performed: Direct anterior left total hip arthroplasty Implants: 1. Depuy Corail 125 standard collar size 12 press-fit femoral stem 2. Depuy pinnacle 56 mm press-fit acetabular shell 3. Depuy pinnacle neutral polyethylene acetabular liner 36 mm ID 56 mm OD 4. Biolox delta ceramic femoral head +1.5 36 mm Anesthesia: regional (Erector spinae block), spinal Surgeon: Sher Sanchez Welder Pipe Making #1: Pierce Perez Estimated Blood Loss (ml): 90 Pathology: other (Femoral head) Condition: stable Disposition: PACU Indications for Procedure: 71-year-old patient seen with symptomatic left hip osteoarthritis. After having treatment options discussed, he elected to proceed with direct anterior left total hip arthroplasty. Operative Findings: See description of procedure Description of Procedure: The patient was taken to the operative suite after having an erector spine a block performed by the department of anesthesia for postoperative pain management. Patient underwent a spinal anesthetic by the department of anesthesia. Patient was then transferred to the [place] table. Patient was given preoperative IV antibiotics and TXA. Both lower extremities were placed in standard leg spars. The hip was then prepped and draped in the normal sterile orthopedic fashion. A standard anterior incision was made beginning 3 cm lateral and 1 cm distal to the ASIS extending 10 cm. Dissection was then carried down through the subcutaneous soft tissues down to the fascia overlying the tensor fascia eduardo. An incision was now made through the fascia. Careful dissection was taken down exposing the tensor fascia eduardo muscle. A Cobra retractor was now placed along the medial femoral neck and a second one along the lateral femoral neck. The venous circumflex vessels were now identified, cauterized and clipped. We identified the anterior hip capsule. An incision was made through the hip capsule along the lateral border. I performed a partial anterior capsulectomy. Retractors were now placed around the femoral neck itself. A femoral neck cut was now made with a sagittal saw. It was completed with an osteotome at the lateral neck area. The femoral head was now removed without difficulty. The extremity was now rotated to 60 of external rotation. It was locked in position. Residual labrum was now debrided out. Serial reaming was performed of the acetabulum while Pierce JOSEPH assisted holding an anterior retractor for exposure. Once we reached the appropriate size and a trial was position and fit nicely. The appropriate size was now chosen opened and made available. It was introduced into the acetabulum without difficulty. The C-arm/fluoroscopy was now brought into the operative field. We made sure we had a true AP pelvic view. We now under direct C-arm/fluoroscopy introduced into the acetabular component with appropriate version and inclination. I held the cup in appropriate position while Pierce JOSEPH used a mallet to seat the acetabular component. I noted the component now to be well seated and stable. Acetabular cup introduce her was removed. The C-arm was pulled back. An appropriate liner was introduced and clicked into position. It was felt to be stable. At this point retractors were removed. The extremity was now placed into 130 external rotation with no traction. The leg was now dropped to the ground and adducted. Appropriate retractors were now positioned along the proximal femur. We also placed our femoral look into position. Additional capsular releasing was performed to gain access to the proximal femur. We now used a box osteotome. A canal finder was now utilized. Serial broaching was now performed with the assistance of Pierce JOSEPH tapping the broaches down with a mallet while held the broach in appropriate rotation and position. This was done until we reached the appropriate size with good overall rotational stability. Appropriate calcar planing was performed. A trial head/neck was placed into position. The hip was now reduced. The C- arm/fluoroscopy was brought back into the operative field. I obtained an AP pelvis was demonstrated adequate leg length alignment. The trial components appeared appropriately sized and positioned. The C-arm/fluoroscopy was pulled back. Retractors were repositioned and the hip was dislocated. The leg was again taken down to the ground and adducted. Appropriate retractors were repositioned as well as the femoral hook. All trial components were removed. The femoral implant was opened along with the femoral head. The femoral implant was introduced on the appropriate handle into our pre-broached area. I held the component position while Pierce JOSEPH used a mallet to seat the femoral component. The femoral component was now noted to be well seated and stable.. The femoral head was introduced with good positioning and fixation noted. Retractors were now removed. The hip was now reduced. There appeared be good positioning of the hip confirmed on intraoperative fluoroscopy. Spot films were obtained to document this. A second gram of TXA was given. The deep and superficial soft tissues were infiltrated with local analgesic. Bipolar cautery had been utilized intermittently through the procedure for hemostasis. The wound was irrigated copiously with pulse lavage mechanical irrigation. The fascia was repaired with Vicryl suture. The subcutaneous soft tissues were repaired in layers with Vicryl suture. The skin was approximated with pernio/Dermabond. Sterile dressings were applied. Patient was then awakened, transferred to a bed and taken to recovery in stable condition. Pierce JOSEPH assisted with the complex procedure.
[2022-03-14] MEDS: HYDROcodone/APAP 7.5-325MG 1 EACH TAB PO PRN (16:40)
--- NOTE | 2022-03-14 17:05 | P.CONS ---
History of Present Illness - Reason for Consult Consult date: 03/14/22 Medical management - Chief Complaint Left hip arthroplasty - History of Present Illness 71-year-old male who presented to the hospital with elective left hip arthroplasty. Patient only has history of hyperlipidemia. We are consulted for medical management. At this time the patient stated that he is doing well. He denied chest pain, nausea, vomiting, abdominal pain, shortness of breath. He stated that his left hip pain after the surgery is tolerable about 4 out of 10. Review of Systems 14 review of system was done. Negative except as mentioned above in the HPI. Past Medical History Past Medical History: Hyperlipidemia, Neurologic Disorder, Skin Disorder Additional Past Medical History / Comment(s): Neurofibromytosis, lower GI bleed with anemia d/t medication allergy per pt. History of Any Multi-Drug Resistant Organisms: None Reported Past Surgical History: No Surgical Hx Reported Additional Past Surgical History / Comment(s): Tumor removed from posterior neck-benign, catahoula spot removed from abdomin for study, colonoscopies-normal with last one in 2019. Past Anesthesia/Blood Transfusion Reactions: No Reported Reaction Past Psychological History: No Psychological Hx Reported Additional Psychological History / Comment(s): Pt resides alone. He is independent. Smoking Status: Never smoker Past Alcohol Use History: None Reported Past Drug Use History: None Reported - Past Family History Father Family Medical History: Cancer Additional Family Medical History / Comment(s): Father of cancer, pt cannot recall type. Mother Family Medical History: Cancer Additional Family Medical History / Comment(s): Mother is from breast/lung cancer Sister(s) Family Medical History: Cancer Additional Family Medical History / Comment(s): Sister is from breast/lung cancer. Medications and Allergies Home Medications Medication Instructions Recorded Confirmed Type Aspirin EC [Ecotrin Low Dose] 81 mg PO HS 05/13/20 03/14/22 History Multivitamins, Thera [Multivitamin 1 tab PO DAILY 05/13/20 03/14/22 History (formulary)] [place]-3 Fatty Acids/Fish Oil [Fish 1 cap PO HS 05/13/20 03/14/22 History Oil 1,000 mg Softgel] Pravastatin Sodium [Pravachol] 40 mg PO HS 05/13/20 03/14/22 History Cannabidiol (Cbd) [Epidiolex] 0 mg PO DIRECTED PRN 03/07/22 03/14/22 History Allergies Allergy/AdvReac Type Severity Reaction Status Date / Time No Known Allergies Allergy Verified 03/14/22 08:38 Physical Exam Vitals: Vital Signs Temp Pulse Pulse Resp BP BP Pulse Ox 03/14/22 13:12 68 16 107/68 96 03/14/22 13:02 67 16 106/59 95 03/14/22 12:45 66 16 104/58 94 L 03/14/22 12:30 73 16 97/54 93 L 03/14/22 12:15 64 14 108/58 95 03/14/22 12:11 97.0 F L 65 14 111/60 95 03/14/22 09:43 73 18 113/66 95 03/14/22 09:27 97.7 F 77 20 129/68 97 Intake and Output 03/14/22 03/14/22 03/14/22 06:59 14:59 22:59 Intake Total 1451 Output Total 90 Balance 1361 Intake: IV 1451 Output: Estimated Blood Loss 90 Other: Weight 85.4 kg Assessment and Plan Assessment: 71-year-old male with history of hyperlipidemia presented to the hospital for elective arthroplasty of the left hip Elective arthroplasty of the left hip. Status post surgical intervention. Postop day 0. Patient is doing well from a pain standpoint. Management by surgery team. Hyperlipidemia, stable continue home medications Recommend PT OT evaluation. Recommend blood work for tomorrow. Recommend placement in rehab. Please feel free to contact us for any medical questions. Thank you for consulting us.
[2022-03-14] MEDS: SENNOSIDES-DOCUSATE SODIUM 1 EACH TAB PO SCH (19:59)
[2022-03-15] MEDS: HYDROcodone/APAP 7.5-325MG 1 EACH TAB PO PRN ×2 (07:48→15:35)
[2022-03-15] MEDS: LACTATED RINGERS 1,000 ML IV SCH ×2 (07:50→10:56)
[2022-03-15] MEDS: MELOXICAM 7.5 MG TAB PO SCH (08:22)
[2022-03-15] MEDS: ENOXAPARIN 40 MG/0.4 ML SYRINGE SQ SCH (08:22)
[2022-03-15] MEDS: FAMOTIDINE 20 MG TAB PO SCH (08:22)
[2022-03-15 10:41] LABS: HCT 33.7 % (39.6-50.0); HGB 10.9 g/dL (13.0-17.0); MCH 29.8 pg (27.0-32.0); MCHC 32.3 g/dL (32.0-37.0); MCV 92.1 fL (80.0-97.0); Mean Platelet Volume 10.2 fL (9.5-12.2); NRBC Per 100 WBC 0 /100 WBCS (0.0-0.0); Platelet Count 238 X 10*3/uL (140-440); RBC 3.66 X 10*6/uL (4.40-5.60); RDW 13.4 % (11.5-14.5); WBC 12.79 X 10*3/uL (4.50-10.00)
[2022-03-15 10:52] LABS: African American GFR (CKD) 102.7 (60.0-200.0); Anion Gap 8.7 mmol/L (10.00-18.00); BUN/Creat Ratio 22.25 Ratio (12.00-20.00); Blood Urea Nitrogen 17.8 mg/dL (9.0-27.0); Carbon Dioxide 25.3 mmol/L (20.0-27.5); Non-African American GFR(CKD) 88.6 (60.0-200.0); Potassium 4.8 mmol/L (3.5-5.5)
--- NOTE | 2022-03-15 11:05 | P.PN ---
Subjective Progress Note Date: 03/15/22 Principal diagnosis: Left hip osteoarthritis Patient was seen at bedside this morning sitting up in chair with walker at bedside. Patient says he did work with physical therapy this morning and was able to walk around the room and up-and-down a couple steps. Patient says he has not had a bowel movement since surgery. Patient does mention his hip does hurt a bit when he is up. Patient does feel that the Christiana does help control his pain. Patient initially wanted to go to rehab and mentioned several times throughout the encounter that his niece preferred for him to go to rehab. However, patient was not accepted at multiple rehab locations due to his level of independence. Patient says he is willing to go home and he does live at home alone. However, patient does mention that he has neighbors that are very helpful if he needs it. Patient denies chest pain, fever, chest breath, nausea, vomiting, change in vision, loss of bowel/bladder control. Objective - Vital Signs Vital signs: Vital Signs Temp 98.8 F 03/15/22 07:52 Pulse 73 03/15/22 07:52 Resp 16 03/15/22 07:52 BP 100/57 03/15/22 07:52 Pulse Ox 91 L 03/15/22 07:52 FiO2 Intake & Output 03/14/22 03/15/22 03/15/22 18:59 06:59 18:59 Intake Total 1451 50 Output Total 90 200 Balance 1361 -150 Weight 85.4 kg Intake: IV 1451 Intake, IV Titration 50 Amount ceFAZolin 2 gm In Sodium 50 Chloride 0.9% 50 ml @ 100 mls/hr IVPB ONCE PRN Rx# :[id number] Output: Urine 200 Estimated Blood Loss 90 Other: # Voids 1 - Exam Left hip: Incision is clean, dry, and intact. The foam dressing is in good condition. There is minimal soft tissue swelling and ecchymosis surrounding the medial and lateral aspects of the incision. Calf is soft, no tenderness with palpation. Plantar flexion, dorsiflexion, EHL, FHL are intact. Sensory exam to light touch throughout the extremity is intact, dorsal pedis pulses 2+. - Labs CBC & Chem 7: 03/15/22 06:26 03/15/22 06:26 Assessment and Plan Assessment: 1. Left hip osteoarthritis - Postop day 1 status post left total hip arthroplasty Plan: 1. Left hip osteoarthritis - left total hip arthroplasty performed yesterday, 03/14/2022. Patient stable at bedside this morning. Patient did do well with physical therapy. Patient was not accepted at multiple rehab locations due to his level of independence. Patient does feel that he will be able do okay at home. Prescription for walker was signed. Plan to discharge patient home with health services tomorrow, 03/16/2022 2. Appreciate medical management 3. Pain management - Christiana 7.5 mg/325 mg 12 every 6 hours. 4. DVT prophylaxis - Lovenox 5. GI prophylaxis - senna in hospital 6. PT/OT - weightbearing as tolerated w/walker as needed 7. Encourage incentive spirometer use 8. Discharge planning - plan for home with health services tomorrow, 03/16/2022 Time with Patient: Less than 30
[2022-03-15 12:39] LABS: Basophils # (M) 0 X 10*3/uL (0.00-0.10); Eosinophils # (M) 0 X 10*3/uL (0.04-0.35); Lymphocytes # (M) 1.02 X 10*3/uL (0.90-5.00); Neutrophils # (M) 10.87 X 10*3/uL (2.00-8.90); Neutrophils % (M) 85 %; RBC Morphology NORMAL
--- NOTE | 2022-03-15 17:44 | P.PN ---
Subjective Progress Note Date: 03/15/22 (delayed charting seen at 1145) Patient is a 71-year-old male with a history of neurofibromatosis, prior lower GI bleed, and dyslipidemia who presented to the hospital for elective left total hip arthroplasty. Patient seen and examined at bedside. He is nervous about going home secondary to being alone. He states his pain is well controlled. He denies any chest pain, shortness breath, nausea, vomiting. General: nontoxic, no distress, appears at stated age Derm: warm, dry Head: atraumatic, normocephalic, symmetric Eyes: EOMI, no lid lag, anicteric sclera Mouth: no lip lesion, mucus membranes moist Cardiovascular: S1S2 reg, no murmur, positive posterior tibial pulse bilateral, Lungs: CTA bilateral, no rhonchi, no rales , no accessory muscle use Abdominal: soft, nontender to palpation, no guarding, no appreciable organomegaly Ext: no gross muscle atrophy, trace edema left lower extremity, no contractures Neuro: CN II-XI grossly intact, no focal neuro deficits Psych: Alert, oriented, appropriate affect Assessment/plan: 71-year-old male status post left total hip arthroplasty Acute blood loss anemia, anticipated outcome of surgery -Repeat CBC in a.m. -Iron supplementation and hemoglobin returns is less than 10 Leukocytosis, reactive -Follow CBC Dyslipidemia -Statin Thank you for allowing us to participate in the care of this pleasant patient. Do not hesitate to contact us with questions. Someone can be reached from the [facility] hospitalist group all hours of the day at [phone] or via perfect serve. Objective - Vital Signs Vital signs: Vital Signs Temp 98.8 F 03/15/22 14:00 Pulse 94 03/15/22 14:00 Resp 16 03/15/22 14:00 BP 92/53 03/15/22 14:00 Pulse Ox 91 L 03/15/22 14:00 FiO2 Intake & Output 03/14/22 03/15/22 03/15/22 18:59 06:59 18:59 Intake Total 1451 50 Output Total 90 200 Balance 1361 -150 Weight 85.4 kg Intake: IV 1451 Intake, IV Titration 50 Amount ceFAZolin 2 gm In Sodium 50 Chloride 0.9% 50 ml @ 100 mls/hr IVPB ONCE PRN Rx# :[id number] Output: Urine 200 Estimated Blood Loss 90 Other: # Voids 1 - Labs CBC & Chem 7: 03/15/22 06:26 03/15/22 06:26 Labs: Abnormal Lab Results - Last 24 Hours (Table) 03/15/22 03/15/22 Range/Units 06:26 06:26 WBC 12.79 H (4.50-10.00) X 10*3/uL RBC 3.66 L (4.40-5.60) X 10*6/uL Hgb 10.9 L (13.0-17.0) g/dL Hct 33.7 L (39.6-50.0) % Neutrophils # (Manual) 10.87 H (2.00-8.90) X 10*3/uL Eosinophils # (Manual) 0 L (0.04-0.35) X 10*3/uL Anion Gap 8.70 L (10.00-18.00) mmol/L BUN/Creatinine Ratio 22.25 H (12.00-20.00) Ratio
[2022-03-15] MEDS: SENNOSIDES-DOCUSATE SODIUM 1 EACH TAB PO SCH (20:51)
[2022-03-16] MEDS: LACTATED RINGERS 1,000 ML IV SCH (05:17)
[2022-03-16 08:12] VITALS: BP 116/68; PULSE 83; RESP 18
[2022-03-16] MEDS: ENOXAPARIN 40 MG/0.4 ML SYRINGE SQ SCH (08:48)
[2022-03-16] MEDS: FAMOTIDINE 20 MG TAB PO SCH (08:48)
[2022-03-16] MEDS: MELOXICAM 7.5 MG TAB PO SCH (08:48)
--- NOTE | 2022-03-16 08:48 | P.DS ---
Providers Date of admission: 03/14/2022 Expected date of discharge: 03/16/22 Attending physician: Sher Sanchez Consults: 03/14/22 11:58 Consult Physician Routine Consulting Provider: Vince Jennings Consult Reason/Comments: Medical management Do you want consulting provider notified?: Yes Primary care physician: [facility], [facility] Course: Date of admission: 03/14/2022 Date of discharge: 03/16/2022 Admission diagnosis: Left hip osteoarthritis Discharge diagnosis: Same Attending physician: Dr. Sanchez Surgical procedures: Left total hip arthroplasty Brief history: Patient is a 71-year-old male with a history of progressive primary left hip osteoarthritis. At this point patient has failed conservative treatment measures and has opted to proceed with a elective left total hip arthroplasty. Hospital course: Details of patient's surgery can be found in operative report. Patient tolerated the procedure well and was subsequently transported to orthopedic floor. Patient's orthopeidc and medical care was provided daily. Patient had daily laboratory tests performed for evaluation of overall blood counts. Patient had daily physical therapy to include strengthening range of motion as well as education with walker ambulation. Patient was treated with Lovenox for their postoperative DVT prophylaxis during their inpatient stay. Patient was noted to have a relatively uneventful postoperative course. Patient reported satisfactory pain control with oral pain medications by postoperative day 1. Patient showed satisfactory progress with physical therapy. Patient moved steadily through the program and had no difficulty meeting the goals by postoperative day 1. Given patient's otherwise satisfactory course and having met physical therapy goals, plan is to discharge patient home with health services on postoperative day 1. Discharge condition/disposition: Patient will be discharged home with health services in stable condition. Discharge medications: Instructions are given on resumption of patient's normal daily medications per primary care recommendation, in addition patient will be prescribed Barnum 7.5 mg/325 mg; Colace; resume aspirin 81 mg twice a day 30 days. Discharge instructions: 1. Wound care and infection precautions, keep incision dry and covered while showering, no lotions, creams, moisturizers. No soaking, tubs, pools, hottubs. Do not scrub over the incision. 2. Weight-bear as tolerated with walker / cane until follow-up. 3. Ice and elevate when necessary. Do not exceed 20 minutes per hour with ice pack. 4. Utilize compression sleeve until seen at first follow up appointment. 5. Visiting nursing care. 6. Home physical therapy. 7. Pain meds and anticoagulants per prescription. 8. Pain medication has potential to cause constipation. Increase oral fluid and fiber intake. Contact primary care provider if you have not had a bowel movement within 48 hours after discharge 9. No anti-inflammatory medication until discussed at first post operative visit, this including Motrin, Aleve, Mobic, Diclofenac. 10. Follow up in office at 2 weeks postop with Jan Foley PA-C / Pierce Perez PA-C 11. Follow up with your primary care doctor 7-10 days after discharge. 12. Contact [facility] with any questions, . Keep dressing on until 03/21/2022. Dressing may removed at 03/21/2022. While showering, cover dressing with Saran wrap. Keep incision clean, dry, intact Assessment: Left hip osteoarthritis Procedures: Left total hip arthroplasty Patient Condition at Discharge: Good Plan - Discharge Summary Discharge Rx Participant: No New Discharge Prescriptions: New Docusate [Colace] 100 mg PO DAILY #30 capsule HYDROcodone/APAP 7.5-325MG [Barnum 7.5] 1 - 2 each PO Q6HR PRN #32 tab PRN Reason: Pain No Action Aspirin EC [Ecotrin Low Dose] 81 mg PO HS Pravastatin Sodium [Pravachol] 40 mg PO HS Multivitamins, Thera [Multivitamin (formulary)] 1 tab PO DAILY Northwood-3 Fatty Acids/Fish Oil [Fish Oil 1,000 mg Softgel] 1 cap PO HS Cannabidiol (Cbd) [Epidiolex] 0 mg PO DIRECTED PRN PRN Reason: Pain Discharge Medication List Aspirin EC [Ecotrin Low Dose] 81 mg PO HS 05/13/20 [History] Multivitamins, Thera [Multivitamin (formulary)] 1 tab PO DAILY 05/13/20 [History] Northwood-3 Fatty Acids/Fish Oil [Fish Oil 1,000 mg Softgel] 1 cap PO HS 05/13/20 [History] Pravastatin Sodium [Pravachol] 40 mg PO HS 05/13/20 [History] Cannabidiol (Cbd) [Epidiolex] 0 mg PO DIRECTED PRN 03/07/22 [History] Docusate [Colace] 100 mg PO DAILY #30 capsule 03/16/22 [Rx] HYDROcodone/APAP 7.5-325MG [Barnum 7.5] 1 - 2 each PO Q6HR PRN #32 tab 03/16/22 [Rx] Follow up Appointment(s)/Referral(s): Alberto Foley PAC [PHYSICIAN PERSONAL COMPUTER NETWORK ANALYST] - 04/06/22 3:00 pm Care,[facility] [NON-STAFF] - As Needed ([facility] will call you to schedule your in home nursing and physical therapy visits.) Donavan Oneil MD [Primary Care Provider] - 1 Week Patient Instructions/Handouts: Total Hip Replacement (DC) Activity/Diet/Wound Care/Special Instructions: Orthopedic Discharge Instructions: 1. Wound care and infection precautions, keep incision dry and covered while showering, no lotions, creams, moisturizers. No soaking, pools, hot tubs. Do not scrub over incision. 2. Weight-bear as tolerated with walker / cane until follow-up. 3. Ice and elevate when necessary. Do not exceed 20 minutes per hour with ice pack. 4. Utilize compression sleeve until seen at first follow up appointment. 5. Pain meds and anticoagulants per prescription. 6. Pain medication has potential to cause constipation. Increase oral fluid and fiber intake. Contact primary care provider if you have not had a bowel movement within 48 hours after discharge. 7. No anti-inflammatory medication until discussed at first post operative visit, this including Motrin, Aleve, Mobic, Diclofenac. 8. Follow up in office at 2 weeks postop with Jan Foley PA-C / Pierce Perez PA-C 9. Follow up with your primary care doctor 7-10 days after discharge. 10. Contact [facility] with any questions, . Foam dressing may be removed on 03/21/2022. While showering, cover dressing with Saran wrap. Keep dressing clean, dry, intact. Discharge Disposition: HOME WITH HOME HEALTH SERVICES
--- NOTE | 2022-03-16 08:51 | P.PN ---
Subjective Progress Note Date: 03/16/22 Principal diagnosis: Left hip osteoarthritis Patient was seen at bedside this morning lying in semirecumbent position. Patient says he did work with physical therapy yesterday and was able to walk around the room and up-and-down a couple steps. Patient says he has not had a bowel movement since surgery. Patient does mention his hip does hurt a bit when he is up. Patient does feel that the [place] does help control his pain. Patient initially wanted to go to rehab and mentioned several times throughout the encounter that his niece preferred for him to go to rehab. However, patient was not accepted at multiple rehab locations due to his level of independence. However, patient does mention that he has neighbors that are very helpful if he needs it. Patient denies chest pain, fever, chest breath, nausea, vomiting, change in vision, loss of bowel/bladder control. Objective - Vital Signs Vital signs: Vital Signs Temp 100.0 F H 03/16/22 08:00 Pulse 83 03/16/22 08:00 Resp 18 03/16/22 08:00 BP 116/68 03/16/22 08:00 Pulse Ox 93 L 03/16/22 08:00 FiO2 Intake & Output 03/15/22 03/16/22 03/16/22 18:59 06:59 18:59 Other: # Voids 5 3 - Exam Left hip: Incision is clean, dry, and intact. The foam dressing is in good condition. There is minimal soft tissue swelling and ecchymosis surrounding the medial and lateral aspects of the incision. Calf is soft, no tenderness with palpation. Plantar flexion, dorsiflexion, EHL, FHL are intact. Sensory exam to light touch throughout the extremity is intact, dorsal pedis pulses 2+. - Labs CBC & Chem 7: 03/15/22 06:26 03/15/22 06:26 Labs: Abnormal Lab Results - Last 24 Hours (Table) 03/15/22 03/15/22 Range/Units 06:26 06:26 WBC 12.79 H (4.50-10.00) X 10*3/uL RBC 3.66 L (4.40-5.60) X 10*6/uL Hgb 10.9 L (13.0-17.0) g/dL Hct 33.7 L (39.6-50.0) % Neutrophils # (Manual) 10.87 H (2.00-8.90) X 10*3/uL Eosinophils # (Manual) 0 L (0.04-0.35) X 10*3/uL Anion Gap 8.70 L (10.00-18.00) mmol/L BUN/Creatinine Ratio 22.25 H (12.00-20.00) Ratio Assessment and Plan Assessment: 1. Left hip osteoarthritis - Postop day 2 status post left total hip arthroplasty Plan: 1. Left hip osteoarthritis - left total hip arthroplasty performed 03/14/2022. Patient stable at bedside this morning. Patient did do well with physical therapy. Patient was not accepted at multiple rehab locations due to his level of independence. Patient does have walker for home. home with health services today, 03/16/2022 2. Appreciate medical management 3. Pain management - Pennington 7.5 mg/325 mg 12 every 6 hours. 4. DVT prophylaxis - Lovenox; Aspirin 81 mg BID x 30 days 5. GI prophylaxis - senna in hospital; Colace at home 6. PT/OT - weightbearing as tolerated w/walker as needed 7. Encourage incentive spirometer use 8. Discharge planning - home with health services today, 03/16/2022 Time with Patient: Less than 30
[2022-03-16 11:00] VITALS: TEMP 98.8
--- NOTE | 2022-03-16 15:10 | P.PN ---
Subjective Progress Note Date: 03/16/22 (delayed charting seen at 10 am) Patient is a 71-year-old male with a history of neurofibromatosis, prior lower GI bleed, and dyslipidemia who presented to the hospital for elective left total hip arthroplasty. Patient seen and examined at bedside. He is feeling well today, pain is well controlled, no cough, no shortness of breath, no nausea, no vomiting, no problems urinating, no diarrhea. General: nontoxic, no distress, appears at stated age Derm: warm, dry Head: atraumatic, normocephalic, symmetric Eyes: EOMI, no lid lag, anicteric sclera Mouth: no lip lesion, mucus membranes moist Cardiovascular: S1S2 reg, no murmur, positive posterior tibial pulse bilateral, Lungs: CTA bilateral, no rhonchi, no rales , no accessory muscle use Abdominal: soft, nontender to palpation, no guarding, no appreciable organomegaly Ext: no gross muscle atrophy, trace edema left lower extremity, no contractures Neuro: CN II-XI grossly intact, no focal neuro deficits Psych: Alert, oriented, appropriate affect Assessment/plan: 71-year-old male status post left total hip arthroplasty - had fevers X 1 this AM which aborted without fever reducing medications. He has no specific complaints. I have asked him to check his fever twice daily for the next 5 days and to alert AO with any fever greater than 100.4, Acute blood loss anemia, anticipated outcome of surgery - outpatient follow-up Leukocytosis, reactive -Follow CBC Dyslipidemia -Statin Thank you for allowing us to participate in the care of this pleasant patient. Do not hesitate to contact us with questions. Someone can be reached from the [facility] hospitalist group all hours of the day at [phone] or via EGT. Objective - Vital Signs Vital signs: Vital Signs Temp 98.8 F 03/16/22 11:00 Pulse 83 03/16/22 08:00 Resp 18 03/16/22 08:00 BP 116/68 03/16/22 08:00 Pulse Ox 93 L 03/16/22 08:00 FiO2 Intake & Output 03/15/22 03/16/22 03/16/22 18:59 06:59 18:59 Other: # Voids 5 3 - Labs CBC & Chem 7: 03/15/22 06:26 03/15/22 06:26
== END 2022-03-16 12:09 | disposition home or self-care (01) ==
LOC: OR 08:21 → 4SSUR 12:05 → OR 03-16 08:41 → 4SSUR 03-16 08:41
PROVIDERS: ADMIT Orthopaedic Surgery; ATTEND Orthopaedic Surgery
DX: M16.12 Unilateral primary osteoarthritis, left hip (principal); E78.5 Hyperlipidemia, unspecified; Q85.00 Neurofibromatosis, unspecified; D72.829 Elevated white blood cell count, unspecified; D62 Acute posthemorrhagic anemia; R50.9 Fever, unspecified; Z87.19 Personal history of other diseases of the digestive system; Z79.82 Long term (current) use of aspirin; Z79.899 Other long term (current) drug therapy; Z71.9 Counseling, unspecified; Z80.8 Family history of malignant neoplasm of other organs or systems; Z80.1 Family history of malignant neoplasm of trachea, bronchus and lung; Z80.3 Family history of malignant neoplasm of breast
CPT/HCPCS: 27130; 97116 ×2; 97161; 97535; 97165; 64999; 86900; 86901; 80048; 85025; 86850; 88300; 73501; G0378; C1776; J2250; J1100; J0690 ×3; J2405; J1650 ×2; J3010

== ENCOUNTER → 2022-07-19 | Outpatient (CLI) | payer MEDICARE ==
[2022-07-19 14:36] LABS: Basophils # (A) 0.07 X 10*3/uL (0.00-0.10); Basophils % (A) 0.8 %; Eosinophils # (A) 0.19 X 10*3/uL (0.04-0.35); Eosinophils % (A) 2.3 %; Immature Grans, Automated 0.7 %; Lymphocytes # (A) 1.93 X 10*3/uL (0.90-5.00); Lymphocytes % (A) 23.4 %; MCHC 31.8 g/dL (32.0-37.0); MCV 91.1 fL (80.0-97.0); Mean Platelet Volume 10.1 fL (9.5-12.2); Monocytes # (A) 0.92 X 10*3/uL (0.20-1.00); Monocytes % (A) 11.2 %; NRBC Per 100 WBC 0 /100 WBCS (0.0-0.0); Neutrophils # (A) 5.08 X 10*3/uL (1.80-7.70); Neutrophils % (A) 61.6 %; Platelet Count 318 X 10*3/uL (140-440); RBC 4.83 X 10*6/uL (4.40-5.60); RDW 14.9 % (11.5-14.5); WBC 8.25 X 10*3/uL (4.50-10.00)
[2022-07-19 14:50] LABS: ALT 16 U/L (10-49); AST 18 U/L (14-35); African American GFR (CKD) 104.8 (60.0-200.0); Albumin 4.2 g/dL (3.8-4.9); Alkaline Phosphatase 88 U/L (41-126); BUN/Creat Ratio 25.89 Ratio (12.00-20.00); Blood Urea Nitrogen 19.7 mg/dL (9.0-27.0); Calcium 10.2 mg/dL (8.7-10.3); Carbon Dioxide 25.8 mmol/L (20.0-27.5); Chloride 107 mmol/L (96-109); Chol/HDL Ratio 3.98 Ratio; Globulin 2.8 g/dL (1.6-3.3); Glucose 105 mg/dL (70-110); LDL Cholesterol,Calculated 131.5 mg/dL (0.0-131.0); Non-African American GFR(CKD) 90.5 (60.0-200.0); Potassium 5.1 mmol/L (3.5-5.5); Sodium 144 mmol/L (135-145); VLDL Calculation 18.22 mg/dL (5.00-40.00)
== END | disposition home or self-care (01) ==
LOC: LABWHC1 08:25
PROVIDERS: ATTEND Family Medicine
DX: Z00.00 Encounter for general adult medical examination without abnormal findings (principal); Z12.5 Encounter for screening for malignant neoplasm of prostate; I10 Essential (primary) hypertension; E11.9 Type 2 diabetes mellitus without complications; E78.2 Mixed hyperlipidemia
CPT/HCPCS: 36415; 80053; 80061; 84153; 84443; 85025

== ENCOUNTER → 2022-09-08 | Outpatient (CLI) | payer MEDICARE ==
--- NOTE | 2022-09-08 10:31 | US ---
EXAMINATION TYPE: US kidneys/renal and bladder DATE OF EXAM: 09/08/2022 COMPARISON: NONE CLINICAL HISTORY: R31.21 ASYMPTOMATIC MICROSCOPIC HEMATURIA. Hematuria EXAM MEASUREMENTS: Right Kidney: 11.4 x 5.8 x 4.6 cm Left Kidney: 11.6 x 5.2 x 4.1 cm Right Kidney: complex cystic area lower pole with echogenic foci 4.5 x 3.0 x 4.7 cm. Left Kidney: Hypoechoic area seen upper pole 1.7 x 1.6 x 1.4 cm. Bladder: Not fully distended. Bilateral Jets seen: Yes There is no evidence for hydronephrosis at this point in time. No nephrolithiasis is seen. The urina ry bladder is anechoic. Bilateral ureteral jets are seen. IMPRESSION: 1. Complex right inferior renal cyst with thin septations an calcifications. Further evaluation with CT renal mass protocol for complete evaluation the kidneys is recommended. 2. No evidence of obstructive uropathy.
== END | disposition home or self-care (01) ==
LOC: RADUSWWP 08:38
PROVIDERS: ATTEND Urology
DX: N28.1 Cyst of kidney, acquired (principal); R31.21 Asymptomatic microscopic hematuria
CPT/HCPCS: 76770; 84153

== ENCOUNTER → 2022-10-27 | Outpatient (CLI) | payer MEDICARE ==
[2022-10-27 16:01] LABS: African American GFR (CKD) >90 (>60 ml/min/1.73 sqM); Anion Gap 4 mmol/L; Blood Urea Nitrogen 19 mg/dL (9-20); Calcium 9.7 mg/dL (8.4-10.2); Carbon Dioxide 31 mmol/L (22-30); Chloride 105 mmol/L (98-107); Glucose 104 mg/dL (74-99); Non-African American GFR(CKD) >90 (>60 ml/min/1.73 sqM); Sodium 140 mmol/L (137-145)
--- NOTE | 2022-10-28 10:44 | CT ---
EXAMINATION TYPE: CT abdomen pelvis wo/w con CT DLP: 2150.30 mGycm, Automated exposure control for dose reduction was used. DATE OF EXAM: 10/27/2022 5:10 PM COMPARISON: Renal ultrasound 09/08/2022 CLINICAL INDICATION:Male, 71 years old with history of R31.21 micro hematuria, N28.1 renal cyst; micr o hematuria and renal cyst TECHNIQUE: Standard CT of the abdomen and pelvis before and after the uneventful administration of 90 mL of Isovue-300 intravenously. Oral contrast was administered. Coronal and sagittal reformats wer e performed. FINDINGS: LOWER CHEST: 3 mm right lower lobe pulmonary micronodule (series 6, image 11). Dense coronary arteria l calcifications and mitral and aortic valvular calcifications. ABDOMEN LIVER: Unremarkable GALLBLADDER AND BILE DUCTS: Cholelithiasis. No surrounding inflammatory changes. PANCREAS: Unremarkable. SPLEEN: Unremarkable. ADRENAL GLANDS: Unremarkable. KIDNEYS AND URETERS: No evidence of hydronephrosis or renal calculus. The kidneys enhance symmetrical ly. Exophytic left mid simple kidney cyst measuring 1.7 cm. Right renal sinus 4.1 cm mildly lobulated thin-walled cyst within curvilinear calcification. No enhancement identified. It demonstrates water density. This is consistent with a Bosniak IIF. PELVIS BLADDER: Limited evaluation due to streak artifact from hip prosthesis. REPRODUCTIVE: Right testicle appears to be within the low right inguinal canal. The left testicle anabel ears be within the scrotum. ABDOMEN & PELVIS STOMACH AND BOWEL: Stomach and duodenum are unremarkable. No focal wall thickening or surrounding inf lammatory changes. Enteric contrast reaches the ileocecal junction. The appendix is within normal batres its. No evidence of bowel obstruction. PERITONEUM: No evidence of pneumoperitoneum or free fluid. VASCULATURE: Mild atherosclerotic calcifications are present throughout the abdominal aorta and its b ranches. No evidence of aortic aneurysm. MUSCULOSKELETAL: No acute osseous abnormalities. Postsurgical changes from left total hip arthroplast y. Multilevel degenerative changes of the visualized spine. Schmorl's noted involving the superior en dplate of L1. LYMPH NODES: No gross evidence for lymphadenopathy. SOFT TISSUE/ABDOMINAL WALL: Unremarkable IMPRESSION: 1. No acute abdominal/pelvic process. 2. Right renal sinus minimally complex cystic lesion consistent with a Bosniak IIF. Follow-up examina tion in 6 months is recommended. 3. Cholelithiasis. 4. Right testicle appears to be in the low portion of the inguinal canal. 5. 3 mm right lower lobe pulmonary micronodule. In a low-risk patient, no follow-up is recommended. I n high-risk patient consider optional CT chest in 12 months.
== END | disposition home or self-care (01) ==
LOC: RADCTMAIN 14:53
PROVIDERS: ATTEND Urology
DX: K80.20 Calculus of gallbladder without cholecystitis without obstruction (principal); N28.1 Cyst of kidney, acquired; R91.1 Solitary pulmonary nodule; R31.21 Asymptomatic microscopic hematuria
CPT/HCPCS: 80048; 74178; 36415; Q9967

== ENCOUNTER → 2023-01-18 | Outpatient (CLI) | payer MEDICARE ==
[2023-01-18 15:51] LABS: ALT 16 U/L (10-49); AST 15 U/L (14-35); Albumin 4.3 d/dL (3.8-4.9); Albumin/Globulin Ratio 1.65 Ratio (1.60-3.17); Alkaline Phosphatase 106 U/L (41-126); Blood Urea Nitrogen 17.2 mg/dL (9.0-27.0); Calcium 10.6 mg/dL (8.7-10.3); Carbon Dioxide 26.5 mmol/L (21.6-31.8); Chloride 107 mmol/L (96-109); Chol/HDL Ratio 4.05 Ratio; Globulin 2.6 d/dL (1.6-3.3); Glucose 105 mg/dL (70-110); LDL Cholesterol,Calculated 119.7 mg/dL (0.0-131.0); Potassium 5.8 mmol/L (3.5-5.5); Sodium 145 mmol/L (135-145); Total Bilirubin 0.6 mg/dL (0.3-1.2); Total Protein 6.9 d/dL (6.2-8.2); VLDL Calculation 19.56 mg/dL (5.00-40.00)
== END | disposition home or self-care (01) ==
LOC: LABWHC1 07:58
PROVIDERS: ATTEND Family Medicine
DX: I10 Essential (primary) hypertension (principal); E78.2 Mixed hyperlipidemia
CPT/HCPCS: 36415; 80053; 80061; 83036

== ENCOUNTER → 2024-01-04 | Outpatient (CLI) | payer MEDICARE ==
--- NOTE | 2024-01-05 12:53 | CA ---
Transthoracic Echo Report Name: Danilo Ngo Age: 73 Gender: M : 1950 Exam Date: 01/04/2024 11:26 Exam Location: [place] [facility] Ht (in): 66 Wt (lb): 172 Ordering Physician: Mercytaff, Physician Attending/Referring Phys: Erma Mchugh [facility] Bilingual Sales Representative Nadya Reyes RDCS Procedure CPT: Indications: R06.02 SHORTNESS OF BREATH Cardiac Hx: AOV REPLACED Technical Quality: Good Contrast 1: Total Dose (mL): Contrast 2: Total Dose (mL): MEASUREMENTS (Male / Female) Normal Values 2D ECHO LV Diastolic Diameter PLAX 5.8 cm 4.2 - 5.9 / 3.9 - 5.3 cm LV Systolic Diameter PLAX 3.9 cm IVS Diastolic Thickness 1.3 cm 0.6 - 1.0 / 0.6 - 0.9 cm LVPW Diastolic Thickness 1.5 cm 0.6 - 1.0 / 0.6 - 0.9 cm LV Relative Wall Thickness 0.5 RV Internal Dim ED PLAX 3.0 cm LVOT Diameter 2.5 cm LA Systolic Diameter LX 4.2 cm 3.0 - 4.0 / 2.7 - 3.8 cm LV Diastolic Volume MOD 4C 92.6 cm??? LV Systolic Volume MOD 4C 35.3 cm??? LV Ejection Fraction MOD 4C 61.9 % LV Cardiac Index MOD 4C 2325.4 cm???/min???m??? LV Diastolic Length 4C 7.6 cm LV Systolic Length 4C 6.1 cm LV Diastolic Volume MOD 2C 100.0 cm??? LV Systolic Volume MOD 2C 48.0 cm??? LV Ejection Fraction MOD 2C 52.0 % LV Cardiac Index MOD 2C 2109.2 cm???/min???m??? LV Diastolic Length 2C 8.8 cm LV Systolic Length 2C 7.4 cm LA Volume 134.8 cm??? 18 - 58 / 22 - 52 cm??? LA Volume Index 70.1 cm???/m??? 16 - 28 cm???/m??? M-MODE Aortic Root Diameter MM 3.6 cm MV E Point Septal Separation 0.9 cm AV Cusp Separation MM 1.5 cm DOPPLER AV Peak Velocity 209.5 cm/s AV Peak Gradient 17.6 mmHg AV Mean Velocity 127.4 cm/s AV Mean Gradient 7.9 mmHg AV Velocity Time Integral 35.9 cm LVOT Peak Velocity 128.7 cm/s LVOT Peak Gradient 6.6 mmHg LVOT Velocity Time Integral 21.3 cm LVOT Stroke Volume 105.6 cm??? LVOT Stroke Volume Index 56.3 ml/m??? LVOT Cardiac Index 4278.0 cm???/min???m??? AV Area Cont Eq vti 2.9 cm??? AV Area Cont Eq pk 3.0 cm??? MV Peak Velocity 156.3 cm/s MV Peak Gradient 9.8 mmHg MV Mean Velocity 83.6 cm/s MV Mean Gradient 3.3 mmHg MV Velocity Time Integral 34.3 cm MV Area PHT 4.2 cm??? MR Peak Velocity 591.1 cm/s MR Peak Gradient 139.8 mmHg Mitral E Point Velocity 130.0 cm/s Mitral A Point Velocity 45.4 cm/s Mitral E to A Ratio 2.9 MV Deceleration Time 179.3 ms TR Peak Velocity 304.6 cm/s TR Peak Gradient 40.1 mmHg Right Ventricular Systolic Press 41.2 mmHg FINDINGS Left Ventricle Left ventricular ejection fraction is estimated at 60-65 %. Left ventricular cavity size normal. Mild concentric left ventricular hypertrophy. Atypical septal motion suggestive of prior open heart surgery Right Ventricle Normal right ventricular size. Mildly reduced right ventricular global systolic function. Mild pulmonary hypertension. . Right ventricular systolic pressure estimated at 41 mm hg. Right Atrium Normal right atrial size. No right atrial thrombus or mass seen. Left Atrium Mildly increased left atrial diameter. Severely increased left atrial volume. Moderately increased left atrial area. Mitral Valve Mitral valve thickened. MV repair. Moderate mitral regurgitation. Moderate mitral annular calcification. No mitral stenosis. Aortic Valve Normally functioning bioprosthetic aortic valve without stenosis with a peak velocity of 2.1 m/s, peak gradient 18 mmHg, mean gradient 8 mmHg, and estimated aortic valve area of 3.0 cm???. Tricuspid Valve Structurally normal tricuspid valve. Mild tricuspid regurgitation. Pulmonic Valve Structurally normal pulmonic valve. Mild pulmonic regurgitation. Pericardium No pericardial or pleural effusion. Aorta Normal size aortic root and proximal ascending aorta. CONCLUSIONS Normal LV size and systolic function. Moderate mitral annular calcification. 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 Moderate mitral regurgitation. Mitral valve repairs seems evident. No pericardial effusion. Mild pulmonary hypertension Previewed by: Dr. Najma Dia MD (Electronically Signed) Final Date: 05 Jan 2024 12:52
== END | disposition home or self-care (01) ==
LOC: RADECHMAIN 11:00
DX: I34.81 Nonrheumatic mitral (valve) annulus calcification (principal); I25.10 Atherosclerotic heart disease of native coronary artery without angina pectoris; I34.0 Nonrheumatic mitral (valve) insufficiency; I27.20 Pulmonary hypertension, unspecified; Z95.2 Presence of prosthetic heart valve
CPT/HCPCS: 93306

== ENCOUNTER → 2024-02-06 | Outpatient (CLI) | payer MEDICARE ==
[2024-02-06 15:40] LABS: Phosphorus 4.1 mg/dL (2.4-5.1)
[2024-02-06 15:44] LABS: BUN/Creat Ratio 26.82 Ratio (12.00-20.00); Blood Urea Nitrogen 29.5 mg/dL (9.0-27.0); Chloride 106 mmol/L (96-109); Glucose 99 mg/dL (70-110); Potassium 5.3 mmol/L (3.5-5.5); Sodium 141 mmol/L (135-145)
[2024-02-06 15:45] LABS: Calcium 10.6 mg/dL (8.7-10.3)
== END | disposition home or self-care (01) ==
LOC: LABWHC1 11:10
PROVIDERS: ATTEND Internal Medicine
DX: N17.9 Acute kidney failure, unspecified (principal)
CPT/HCPCS: 36415; 80069

== ENCOUNTER → 2024-02-16 | Outpatient (CLI) | payer MEDICARE ==
[2024-02-16 11:26] LABS: Creatinine,Urine Random 192.7 mg/dL
[2024-02-16 15:47] LABS: Basophils # (A) 0.06 X 10*3/uL (0.00-0.10); Basophils % (A) 0.6 %; Eosinophils # (A) 0.06 X 10*3/uL (0.04-0.35); Eosinophils % (A) 0.6 %; HCT 40.5 % (39.6-50.0); HGB 12.7 g/dL (13.0-17.0); Lymphocytes # (A) 1.47 X 10*3/uL (0.90-5.00); Lymphocytes % (A) 15.6 %; MCH 29.6 pg (27.0-32.0); MCHC 31.4 g/dL (32.0-37.0); MCV 94.4 FL (80.0-97.0); Monocytes # (A) 1.21 X 10*3/uL (0.20-1.00); Monocytes % (A) 12.8 %; NRBC Per 100 WBC 0 X 10*3/uL (0.00-0.01); Neutrophils # (A) 6.59 X 10*3/uL (1.80-7.70); Platelet Count 287 X 10*3/uL (140-440); RBC 4.29 X 10*6/uL (4.40-5.60); RDW 13.8 % (11.5-14.5); WBC 9.43 X 10*3/uL (4.50-10.00)
[2024-02-16 16:18] LABS: Chol/HDL Ratio 5.11 Ratio; VLDL Calculation 18.64 mg/dL (5.00-40.00)
[2024-02-16 16:19] LABS: ALT 13 U/L (10-49); AST 17 U/L (14-35); Albumin 3.9 g/dL (3.8-4.9); Albumin/Globulin Ratio 1.56 Ratio (1.60-3.17); Alkaline Phosphatase 95 U/L (41-126); Blood Urea Nitrogen 27.4 mg/dL (9.0-27.0); Calcium 9.5 mg/dL (8.7-10.3); Carbon Dioxide 24.3 mmol/L (21.6-31.8); Chloride 109 mmol/L (96-109); Globulin 2.5 g/dL (1.6-3.3); Glucose 110 mg/dL (70-110); LDL Cholesterol,Calculated 136.6 mg/dL (0.0-131.0); Prostate Specific Antigen 0.08 ng/mL (0.000-6.500); Sodium 143 mmol/L (135-145); Total Bilirubin 0.7 mg/dL (0.3-1.2); Total Protein 6.4 g/dL (6.2-8.2)
== END | disposition home or self-care (01) ==
LOC: LABWHC1 08:12
PROVIDERS: ATTEND Family Medicine
DX: Z12.5 Encounter for screening for malignant neoplasm of prostate (principal); N17.9 Acute kidney failure, unspecified; E78.2 Mixed hyperlipidemia; I10 Essential (primary) hypertension
CPT/HCPCS: 36415; 80053; 80061; 82570; 84153; 84156; 84443; 85025